=== PATIENT | male | born 1940 | race Caucasian/White ===

== ENCOUNTER 2025-08-14 14:06 | Emergency (ER) | payer MEDICARE, OTHER, SELFPAY ==
[2025-08-14 14:08] VITALS: BP 118/81
--- NOTE | 2025-08-14 15:38 | ED.GENMED ---
History of Present Illness
General
Chief Complaint: Musculo-Skeletal Complaint
Source: patient
Exam Limitations: none
Time Seen by Provider: 08/14/25 15:25
Nursing documentation reviewed up to this point in time: agreed with
History of Present Illness
History of Present Illness:
Note:
CHIEF COMPLAINT(S)
Right-sided back pain.
HISTORY OF PRESENT ILLNESS
The patient is an 84-year-old male who presents with right-sided back pain. The pain began on Friday after engaging in activity at a playground. The patient described climbing seven steps to a small landing and then twisting to go down a slide.
He reports that the pain started the night following the activity and did not begin immediately. The patient describes the pain as occurring with turning movements, but not when standing still or walking. He denies any previous episodes of similar
pain, history of kidney infections, or kidney stones. 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 He
reports catheterizing five times today. There is no accompanying dysuria or urinary difficulty beyond his usual catheterization routine. Upon examination, pain is elicited with palpation on the right side of the back, and it does not radiate to the
front.
PAST MEDICAL AND SURIGICAL HISTORY
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
SOCIAL DETERMINANTS AFFECTING HEALTH
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
PHYSICAL EXAM
General: No acute distress.
Skin: Warm, dry.
Head: Normocephalic, atraumatic.
Neck: Supple, trachea midline.
Eye Ears, nose, mouth, and throat: Oral mucosa moist.
Cardiovascular: Normal peripheral perfusion, no edema noted.
Respiratory: Respirations are non-labored.
Gastrointestinal : Abdomen nondistended.
Back: Tenderness on the right side noted upon palpation.
Musculoskeletal: Normal range of motion, normal strength.
Neurological: Alert and oriented to person, place, time, and situation, no focal neurological deficit observed.
Psychiatric: Cooperative, appropriate mood and affect.
PROBLEM LIST
Acute: Right-sided back pain.
PLAN
1. Catheterization performed to obtain urine for analysis to rule out urinary tract infection.
2. CT scan to evaluate back pain and rule out other conditions such as kidney issues.
3. Monitor the patient for changes or improvement in symptoms.
DIFFERENTIAL DIAGNOSIS
The Differential Diagnosis includes, in no particular order and is not limited to:
1. Musculoskeletal strain.
2. Urinary tract infection.
3. Urolithiasis (kidney stones).
4. Pyelonephritis.
5. Prostatitis.
6. Spinal disc herniation.
7. Spinal stenosis.
8. Renal abscess.
9. Osteoarthritis of the spine.
10. Intervertebral disc degeneration.
CARE-UPDATE
08/14/25 - 23:08
Patient continues to experience right flank pain, attributed to muscular strain and urinary tract infection. Absence of indications for kidney stones or pyelonephritis was confirmed. Prescribed Levofloxacin for UTI management. Patient instructed to
follow up with primary care for ongoing evaluation and advised on precautionary measures related to the current condition.
Disposition:
SUMMARY OF ENCOUNTER
The patient was seen in the emergency department for right-sided back pain, which started after engaging in activity at a playground. A urinalysis was performed, and a CT scan was ordered to evaluate the back pain. There was suspicion of a urinary
tract infection (UTI) and a left flank strain. Although the CT scan did not suggest pyelonephritis, it was considered in the treatment plan due to the symptoms described.
DISPOSITION
Discharge home.
ASSESSMENT
The patient was assessed to have a urinary tract infection and left flank strain.
EMERGENCY TREATMENTS ADMINISTERED
One dose of levofloxacin was given in the emergency department.
PLAN
Treat the suspected urinary tract infection and possible pyelonephritis with levofloxacin. The patient received a prescription for levofloxacin, to be filled at the pharmacy.
INDEPENDENT REVIEW OF LABS AND INTERPRETATION OF TESTS
My independent interpretation of the CT scan revealed no evidence of pyelonephritis.
PATIENT EDUCATION AND COUNSELING
The patient was advised on the nature of the suspected urinary tract infection and the treatment plan, including the use of levofloxacin.
FOLLOW-UP INSTRUCTIONS
The patient is advised to follow up with their primary care physician to monitor symptoms and ensure proper healing.
MEDICATION RECONCILIATION
- Levofloxacin prescription sent to the pharmacy.
- One dose of levofloxacin administered in the emergency department.
MEDICAL DECISION MAKING
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 Differential diagnosis includes urinary tract infection
and potential for pyelonephritis despite the CT scan not supporting it, along with musculoskeletal strain considerations.
-Data:
Category 2
My independent interpretation of the CT scan revealed no evidence of pyelonephritis.
-Risk:
Prescription medication was prescribed (levofloxacin) due to the risk of complications from a potential urinary tract infection and possible pyelonephritis.
DIAGNOSIS
- Urinary tract infection (N39.0)
- Left flank strain (S39.012A)
Phy Exam
Physical Exam
Physical Exam:
.
Course
Orders/Labs/Results
Orders:
Orders
08/14/25 15:37
CT Abd/pel Without Iv Or Oral Urgent
Comment:
Reason For Exam: right flank pain
08/14/25 15:56
Urinalysis Reflex To Culture Urgent
Date Specimen was Collected: 08/14/25
Time Specimen was Collected: 15:41
Urine Microscopic Reflex Cult Urgent
Urine Culture Urgent
TAMELA Source: U
Specimen Description:
Date Specimen was Collected: 08/14/25
Time Specimen was Collected: 15:41
08/14/25 17:52
LevoFLOXacin [Levaquin] 500 mg PO NOW STA
Abnormal Lab Results
08/14/25
15:56
Ur Occult Blood Reflex 3+ A
(Negative)
Urine Nitrite (Reflex) Positive A
(Negative)
Leukocyte Esterase Rfl 3+ A
(Negative)
Urine RBC 11-15 A /HPF
(0-2)
Urine WBC (Reflex) 70-80 A /HPF
(0-5)
Urine Bacteria (Reflex) Moderate A
(Negative)
Urine Albumin (Reflex) 2+ A
(Neg - Trace)
Vital Signs
Initial and Last Documented VS:
Initial Vital Signs
Temp Pulse Resp BP Pulse Ox
97.8 F 89 18 118/81 95
08/14/25 14:08 08/14/25 14:08 08/14/25 14:08 08/14/25 14:08 08/14/25 14:08
Last Documented Vital Signs
Temp Pulse Resp BP Pulse Ox
97.8 F 89 18 118/81 95
08/14/25 14:08 08/14/25 14:08 08/14/25 14:08 08/14/25 14:08 08/14/25 15:38
*Pulse Oximetry
SaO2: 95
Oxygen Mode of Delivery: Room air
Patient hypoxic: no
*Critical Care Note
Total Time (30-74mins, 75-104mins- exclusive of procedures): Not Applicable
ED Attending Note
-
Portions of this chart may have been created with voice recognition software.� Occasional wrong word or��sound alike� substitutions may have occurred due to the inherent limitations of voice recognition software.
Discharge Plan
Departure
Patient Disposition: Home (Routine Discharge)
Date of Disposition: 08/14/25
Time of Disposition: 17:53
Patient with high blood pressure during this ER visit?: No
Condition: Good
Discharge Problem:
Acute right flank pain, Acute UTI
Instructions: Urinary tract infections in adults, Flank pain - ED (DC)
Prescriptions:
New
levofloxacin 500 mg tablet
500 mg PO DAILY 4 Days Qty: 4 0RF
Referrals:
Eveline Lubin MD [Family Provider, Internal Medicine] - Call in 1-3 days for appt
Interventions
Interventions:
*Risk Screen - Suicide Last Done: 08/14/25 14:08
*General Assessment Last Done: 08/14/25 15:31
*Neglect/Abuse Screening Last Done: 08/14/25 15:31
*ED COVID-19 Vaccine History Last Done: 08/14/25 15:31
*ED Influenza Vaccine History Last Done: 08/14/25 15:31
*Nursing Disposition Last Done: 08/14/25 18:18
ED-Musculoskeletal Assessment Last Done: 08/14/25 15:31
Discharge Date and Time
Discharge Date/Time: 08/14/25 18:18
Print Language: LITHUANIAN
[2025-08-14 16:21] LABS: Urine Character Cloudy (Clear)
[2025-08-14 17:06] LABS: Urine Squamous Cell 0-2 /LPF (Few)
[2025-08-14 17:07] LABS: Urine White Cell 70-80 /HPF (0-5)
[2025-08-14] MEDS: LEVAQUIN 500 MG PO (17:58)
== END 2025-08-14 18:18 | disposition home or self-care (01) ==
LOC: EMR 14:06
PROVIDERS: EMERGENCY PHYSICIAN Emergency Medicine; FAMILY PHYSICIAN Internal Medicine
DX: R10.A1 Flank pain, right side (principal); N39.0 Urinary tract infection, site not specified; C61 Malignant neoplasm of prostate; Z92.3 Personal history of irradiation
CPT/HCPCS: 99284; 74176; 81003; 81015; 87077; 87086